=== PATIENT | female | born 1970 | race Caucasian/White ===

== ENCOUNTER 2018-01-15 11:38 | Emergency (ER) | payer SELFPAY, MEDICAID ==
[2018-01-15] MEDS: CIPROFLOXACIN 0.3% OPHTH SOLUTION 5ML BOTTLE. AS (13:27)
[2018-01-15] MEDS: DEXAMETHASONE 0.1% OPHTH SOLUTION 5ML BOTTLE. AS (13:27)
== END 2018-01-15 13:32 | disposition home or self-care (01) ==
LOC: ER 11:38
DX: H60.92 Unspecified otitis externa, left ear (principal); E11.9 Type 2 diabetes mellitus without complications; E78.00 Pure hypercholesterolemia, unspecified; Z79.2 Long term (current) use of antibiotics; Z79.899 Other long term (current) drug therapy; Z88.0 Allergy status to penicillin
CPT/HCPCS: 99283

== ENCOUNTER 2018-04-17 16:12 | Emergency (ER) | payer SELFPAY | END 2018-04-17 17:42 | disposition home or self-care (01) | LOC: ER 16:12 | DX: S10.96XA Insect bite of unspecified part of neck, initial encounter (principal); L03.221 Cellulitis of neck; E11.9 Type 2 diabetes mellitus without complications; E78.00 Pure hypercholesterolemia, unspecified; Z88.0 Allergy status to penicillin; W57.XXXA Bitten or stung by nonvenomous insect and other nonvenomous arthropods, initial encounter; Y93.89 Activity, other specified; Y92.89 Other specified places as the place of occurrence of the external cause; Y99.8 Other external cause status | CPT/HCPCS: 99283 ==

== ENCOUNTER 2018-04-26 12:39 | Emergency (ER) | payer OTHER ==
[~2018-04-26] VITALS: Ht 167.6 cm; Wt 149.7 kg
[~2018-04-26 12:39] MED LIST: AMOX500C PO; CIPR10DR AS; SULF1TAB24 PO
[2018-04-26 12:55] VITALS: BP 149/80
--- NOTE | 2018-04-26 13:57 | RAD ---
EXAM: Right hand, 3 views; left knee, 3 views. HISTORY: Pain. Fall. COMPARISON: None. FINDINGS: Right hand: Frontal, lateral and oblique views of the right hand are obtained. There is no acute fracture, dislocation or subluxation. There is spurring involving the base of the first distal phalanx. Left knee: 3 views left knee are obtained. There is no fracture, dislocation or subluxation. There is an elongated benign-appearing cortical base sclerotic lesion along the medial proximal tibial metaphysis measuring 2.5 cm. There is no joint effusion. IMPRESSION: 1. No acute osseous finding. 2. Benign-appearing cortical base sclerotic lesion along the medial proximal tibial metaphysis, possibly due to a healed fibrous cortical defect. Electronically signed by: Michelle José MD (04/26/2018 1:54 PM) [email or web address]
[2018-04-26] MEDS ORDERED: IBUPROFEN 600 MG TABLET. PO ONE (14:00)
--- NOTE | 2018-04-26 14:41 | PHYS DOC ---
Past Medical History Past Medical History: Diabetes-Type II, High Cholesterol Additional Past Surgical Histo: Gastric Sleeve Alcohol Use: None Drug Use: None Adult General Chief Complaint Chief Complaint: MECHANICAL FALL HPI HPI 47 y/o female presents to ER via POV for c/o tripping causing her to fall forward which occurred around 11 a.m. this morning. She reports she fell onto concrete onto her rt palm/hand and lt knee causing her to twist her back. She denies striking her head or having any head/neck pain. She reports she has been able to walk without assist since fall. She denies any dizziness/ lightheadedness. Pt denies taking any OTC meds [employer] to arrival to ER. She denies any incontinence of bowel/bladder or saddle anesth. She reports she has voided since fall without sxs. Review of Systems Review of Systems Constitutional: Denies lethargy Eyes: Denies change in visual acuity, redness, or eye pain [] HENT: Denies vision changes, nosebleed Respiratory: Denies shortness of breath [] Cardiovascular: Denies CP GI: Denies abdominal pain, nausea, vomiting : Denies dysuria or hematuria. Denies any incontinence of bowel/bladder Musculoskeletal: Reports rt lower back pain, lt knee pain, and rt palm of hand pain Integument: Denies abrasions, swelling, bruising, bleeding, lacerations Neurologic: Denies headache, focal weakness or sensory changes [] All other systems were reviewed and found to be within normal limits, except as documented in this note. Current Medications Current Medications Current Medications Medications (Trade) Dose Ordered Sig/[facility] Start Time Stop Time Status Last Admin Dose Admin Ibuprofen (Motrin) 600 mg 1X ONCE 04/26/18 14:00 04/26/18 14:01 DC 04/26/18 13:53 600 MG Allergies Allergies Allergies Coded Allergies Type Severity Reaction Last Updated Verified Penicillins Allergy Unknown 01/15/18 Yes Physical Exam Physical Exam Constitutional: Well developed, well nourished, no acute distress, non-toxic appearance. [] HENT: Normocephalic, atraumatic, bilateral ears normal, mucous membranes pink/ moist- no dental/tongue injury, nose normal. [] Eyes: 3mm bilat. PERRLA, EOMI, no nystagmus conjunctiva normal Neck: Normal range of motion, no tenderness, supple, no midline cervical tenderness/palp. deformity Cardiovascular:Heart rate regular rhythm, no murmur [] Lungs & Thorax: Bilateral breath sounds clear to auscultation. Resp. equal/ nonlabored. No chest wall tenderness Abdomen: Bowel sounds normal, soft, no tenderness, no masses, no pulsatile masses. [] Skin: Warm, dry, intact, no visible injury on exam Back: Tender to palp. rt lower back with no swelling- no midline spinal tenderness or palp. deformity Extremities: Pelvis stable/nontender. Tender to palp rt palm with no swelling/ ecchymosis, or visible injury. No tenderness on rt wrist exam. Tender to palp. lt anterior knee with no palp. deformity- able to perform ROM but has c/o increased pain with movements, no cyanosis, ROM intact, no edema. Neurologic: Alert and oriented X 3, normal motor function, normal sensory function, no focal deficits noted. Steady gait Psychologic: Affect normal, judgement normal, mood normal. [] Current Patient Data Vital Signs Vital Signs Date Time Temp Pulse Resp B/P (MAP) Pulse Ox O2 Delivery O2 Flow Rate FiO2 04/26/18 12:55 97.8 74 18 149/80 (103) 96 Room Air 97.8 EKG EKG [] Radiology/Procedures Radiology/Procedures EXAM: Right hand, 3 views; left knee, 3 views. HISTORY: Pain. Fall. COMPARISON: None. FINDINGS: Right hand: Frontal, lateral and oblique views of the right hand are obtained. There is no acute fracture, dislocation or subluxation. There is spurring involving the base of the first distal phalanx. Left knee: 3 views left knee are obtained. There is no fracture, dislocation or subluxation. There is an elongated benign-appearing cortical base sclerotic lesion along the medial proximal tibial metaphysis measuring 2.5 cm. There is no joint effusion. IMPRESSION: 1. No acute osseous finding. 2. Benign-appearing cortical base sclerotic lesion along the medial proximal tibial metaphysis, possibly due to a healed fibrous cortical defect. Electronically signed by: Michelle José MD (04/26/2018 1:54 PM) [facility] DICTATED and SIGNED BY: MICHELLE JOSÉ MD DATE: 04/26/18 8490 Course & Med Decision Making Course & Med Decision Making Pt was provided with dose of Ibuprofen and ice pack while in ER and appeared to be sleeping while xray results were pending. Pt woke easily to voice command and xray results were discussed with no acute findings. She remains neuro/ vascular intact in all extremities. She continues to deny any head/neck pain. She reports with ibuprofen her pain had improved. She is in no visible distress and able to ambulate at bedside without assist. Discussed plans for connie wrap to left knee and discharge home. Discussed if symptoms persist she will need follow -up with orthopedic doctor. Will provide referral information with discharge paperwork. Patient to use [id number] ibuprofen and/or Tylenol as needed for pain along with ice pack to affected area. Discharge instructions discussed and education provided on signs and symptoms to return to ER for. Patient is agreeable with discharge plan. Dragon Disclaimer Dragon Disclaimer This electronic medical record was generated, in whole or in part, using a voice recognition dictation system. Departure Departure Impression: Primary Impression: Fall Additional Impressions: Injury of right hand Abdominal injury Left knee injury Low back strain Disposition: 01 HOME, SELF-CARE Condition: STABLE Patient Instructions: Back Pain, Adult, Fall Prevention and Home Safety, Hand Injuries, Knee Sprain Additional Instructions: Tylenol and/or Ibuprofen as needed for pain control as directed on container. Ice and heat application to affected area Problem Qualifiers MARK WATSON APRN Apr 26, 2018 14:41
== END 2018-04-26 14:50 | disposition home or self-care (01) ==
LOC: ER 12:39
DX: S39.012A Strain of muscle, fascia and tendon of lower back, initial encounter (principal); S39.91XA Unspecified injury of abdomen, initial encounter; S89.92XA Unspecified injury of left lower leg, initial encounter; S69.91XA Unspecified injury of right wrist, hand and finger(s), initial encounter; E78.00 Pure hypercholesterolemia, unspecified; E11.9 Type 2 diabetes mellitus without complications; Z88.0 Allergy status to penicillin; W01.0XXA Fall on same level from slipping, tripping and stumbling without subsequent striking against object, initial encounter; Y93.89 Activity, other specified; Y92.89 Other specified places as the place of occurrence of the external cause; Y99.8 Other external cause status
CPT/HCPCS: 73130; 73562; 99284

== ENCOUNTER 2019-07-23 14:18 | Emergency (ER) | payer OTHER | END 2019-07-23 15:29 | disposition left against medical advice (07) | LOC: ER 14:18 | DX: R10.9 Unspecified abdominal pain (principal); Z53.21 Procedure and treatment not carried out due to patient leaving prior to being seen by health care provider ==